=== PATIENT | male | born 1980 | race American Indian/Alaskan Native ===

== ENCOUNTER 2021-11-12 11:09 | Emergency (ER) | payer SELFPAY ==
[2021-11-12 11:35] VITALS: BP 152/90
[2021-11-12] MEDS ORDERED: METOCLOPRAMIDE 10 MG/2 ML INJ IV ONE (11:38)
[2021-11-12] MEDS ORDERED: diphenhydrAMINE 50 MG/ML VIAL IV ONE (11:38)
[2021-11-12] MEDS ORDERED: SODIUM CHLORIDE 0.9% 1000 ML 1,000 ML IV ONE (11:38)
--- NOTE | 2021-11-12 12:31 | Emergency Department Report ---
ED Headache HPI - General Chief Complaint: Headache Stated Complaint: MIGRAINE Time Seen by Provider: 11/12/21 11:38 Source: patient, RN notes reviewed Exam Limitations: no limitations - History of Present Illness Initial Comments: This is a 41-year-old male nontoxic, well nourished in appearance, no acute signs of distress presents to the ED with c/o of acute on chronic headache x several years. Patient stated had normal CT scan previously. Patient describes headache as diffuse with level of 3 out of 10. Patient denies thunderclap headache. Patient denies any radiation of pain. Patient denies any head trauma. Patient denies any visual changes. Patient denies worse headache. Patient stated that darkness makes headache better and bright lights make the headache worse. Patient denies any numbness, tingling, fever, chills, nausea, vomiting, chest pain, shortness of breath, stiff neck. Patient denies facial drooping or one sided weakness. Patient denies any radiation of pain. Patient stated allergies to penicillin. Past medical history includes migraine headaches. Timing/Duration: episodic Quality: achy Head Injury Location: other (diffuse) Recent Head Trauma: occasional headaches Associated Symptoms: denies symptoms. denies: confusion, fatigue, facial pain, fever/chills, flushing, loss of consciousness, nausea/vomiting, nasal congestion, nasal drainage, numbness in legs/feet, rash, seizures, sinus infection, stiff neck, vision changes, weakness Allergies/Adverse Reactions: Allergies Penicillins Allergy (Verified 01/11/14 12:33) Swelling Home Medications: Ambulatory Orders Fluticasone Propionate [Flonase] 16 gm NS BID #1 spray.susp 01/11/14 Sulfamethoxazole/Trimethoprim [Bactrim Ds] 1 each PO BID #20 tablet 01/11/14 predniSONE mg PO QDAY 01/11/14 HYDROcodone/APAP 5-325 [Mcalpin 5-325 mg TAB] 1 each PO Q6HR PRN #20 tablet 11/08/14 Naproxen [Naprosyn TAB] 500 mg PO BID #20 tablet 11/08/14 predniSONE [Deltasone] 50 mg PO QDAY #5 tab 11/08/14 Cetirizine HCl [Allergy Relief] 10 mg PO DAILY #10 tablet 04/14/15 Clindamycin [Cleocin] 300 mg PO Q8H #21 cap 04/14/15 Fluticasone [Flonase] 1 spray NS QDAY #1 bottle 04/14/15 Ibuprofen [Motrin 600 MG tab] 600 mg PO Q8H PRN #30 tablet 04/14/15 traMADoL [Ultram 50 MG tab] 50 mg PO Q6HR PRN #14 tablet 04/14/15 Butalb/Acetamin/Caff 50-325-40 [Fioricet 50-325-40] 1 tab PO Q8HR PRN #12 tablet 11/12/21 ED Review of Systems ROS: Stated complaint: MIGRAINE Other details as noted in HPI Comment: All other systems reviewed and negative Constitutional: denies: chills, fever Eyes: denies: eye pain, eye discharge, vision change ENT: denies: ear pain, throat pain Respiratory: denies: cough, shortness of breath, wheezing Cardiovascular: denies: chest pain, palpitations Endocrine: no symptoms reported Gastrointestinal: denies: abdominal pain, nausea, diarrhea Genitourinary: denies: urgency, dysuria Musculoskeletal: denies: back pain, joint swelling, arthralgia Skin: denies: rash, lesions Neurological: headache. denies: weakness, numbness, paresthesias, confusion, abnormal gait, vertigo Psychiatric: denies: anxiety, depression Hematological/Lymphatic: denies: easy bleeding, easy bruising ED Past Medical Hx - Past Medical History Previous Medical History?: Yes Hx Headaches / Migraines: Yes Additional medical history: sarcoidosis, Migraine headache, "Left lung with benignlymph node" - Surgical History Past Surgical History?: Yes Additional Surgical History: biopsy x 2, Left lung biopsy - Social History Smoking Status: Current Every Day Smoker Substance Use Type: Marijuana - Medications Home Medications: Home Medications Medication Instructions Recorded Confirmed Last Taken Type Fluticasone Propionate [Flonase] 16 gm NS BID #1 spray.susp 01/11/14 Unknown Rx Sulfamethoxazole/Trimethoprim 1 each PO BID #20 tablet 01/11/14 Unknown Rx [Bactrim Ds] predniSONE mg PO QDAY 01/11/14 01/11/14 Unknown History HYDROcodone/APAP 5-325 [Mcalpin 1 each PO Q6HR PRN #20 tablet 11/08/14 Unknown Rx 5-325 mg TAB] Naproxen [Naprosyn TAB] 500 mg PO BID #20 tablet 11/08/14 Unknown Rx predniSONE [Deltasone] 50 mg PO QDAY #5 tab 11/08/14 Unknown Rx Cetirizine HCl [Allergy Relief] 10 mg PO DAILY #10 tablet 04/14/15 Unknown Rx Clindamycin [Cleocin] 300 mg PO Q8H #21 cap 04/14/15 Unknown Rx Fluticasone [Flonase] 1 spray NS QDAY #1 bottle 04/14/15 Unknown Rx Ibuprofen [Motrin 600 MG tab] 600 mg PO Q8H PRN #30 tablet 04/14/15 Unknown Rx traMADoL [Ultram 50 MG tab] 50 mg PO Q6HR PRN #14 tablet 04/14/15 Unknown Rx Butalb/Acetamin/Caff 50-325-40 1 tab PO Q8HR PRN #12 tablet 11/12/21 Unknown Rx [Fioricet 50-325-40] ED Physical Exam - General Limitations: No Limitations General appearance: alert, in no apparent distress - Head Head exam: Present: atraumatic, normocephalic - Eye Eye exam: Present: normal appearance, PERRL, EOMI - ENT ENT exam: Present: normal exam - Neck Neck exam: Present: normal inspection, full ROM. Absent: tenderness, meningismus, lymphadenopathy - Respiratory Respiratory exam: Present: normal lung sounds bilaterally. Absent: respiratory distress, wheezes, rales, rhonchi, stridor, chest wall tenderness, accessory muscle use, decreased breath sounds, prolonged expiratory - Cardiovascular Cardiovascular Exam: Present: regular rate, normal rhythm, normal heart sounds. Absent: bradycardia, tachycardia, irregular rhythm, systolic murmur, diastolic murmur, rubs, gallop - GI/Abdominal GI/Abdominal exam: Present: soft. Absent: distended, tenderness - Extremities Exam Extremities exam: Present: full ROM - Back Exam Back exam: Present: normal inspection, full ROM - Neurological Exam Neurological exam: Present: alert, oriented X3, normal gait - Expanded Neurological Exam Expanded Patient oriented to: Present: person, place, time Cranial nerves: EOM's Intact: Normal, Facial Sensation: Normal Cerebellar function: Finger to Nose: Normal Upper motor neuron: Pronator Drift: Normal, Sensory Extinction: Normal Motor strength exam: RUE: 5, LUE: 5, RLE: 5, LLE: 5 Best Eye Response (Jay): (4) open spontaneously Best Motor Response ([place]): (6) obeys commands Best Verbal Response (Jay): (5) oriented [place] Total: 15 - Psychiatric Psychiatric exam: Present: normal affect, normal mood - Skin Skin exam: Present: warm, dry, intact, normal color. Absent: rash ED Course Vital Signs 11/12/21 11:33 Temperature 98.5 F Pulse Rate 95 H Respiratory 20 Rate Blood Pressure 152/90 O2 Sat by Pulse 100 Oximetry - Reevaluation(s) Reevaluation #1: 11/12/21 12:32 Patient is speaking in full sentences with no signs of distress noted. ED Medical Decision Making - Medical Decision Making This is a 41-year-old male that presents with headache. Patient is stable and was examined by me. Patient is neurologically stable. There is no stiff neck or neck pain. Vital signs are stable. Patient is afebrile. Patient received Benadryl, Reglan, and 1 L of normal saline which the patient stated that headache has subsided and resolved. Patient was instructed not to operate any machinery after discharged due to drowsiness of Benadryl. Patient stated that a family member will drive patient home. Patient is discharged with Fioricet. Patient was referred to Follow-up with a primary care/neurologist doctor in 3-5 days or if symptoms worsen and continue return to emergency room as soon as possible. At time of discharge, the patient does not seem toxic or ill in appearance. No acute signs of distress noted. Patient agrees to discharge treatment plan of care. No further questions noted by the patient. Critical care attestation.: If time is entered above; I have spent that time in minutes in the direct care of this critically ill patient, excluding procedure time. ED Disposition Clinical Impression: Headache Qualifiers: Headache type: unspecified Headache chronicity pattern: episodic headache Intractability: not intractable Qualified Code(s): R51.9 - Headache, unspecified Disposition: 01 HOME / SELF CARE / HOMELESS Is pt being admited?: No Does the pt Need Aspirin: No Condition: Stable Instructions: Migraine Headache Additional Instructions: Follow-up with a primary care doctor in 3-5 days or if symptoms worsen and continue return to emergency room as soon as possible. Prescriptions: Butalb/Acetamin/Caff 50-325-40 [Fioricet 50-325-40] 1 tab PO Q8HR PRN #12 tablet PRN Reason: Headache Referrals: PRIMARY CAREMD [Primary Care Provider] - 3-5 Days CHRISTINA CARMICHAEL MD [Staff Physician] - 3-5 Days Forms: Work/School Release Form(ED) Time of Disposition: 13:20
== END 2021-11-12 14:03 | disposition home or self-care (01) ==
LOC: ED 11:09
DX: R51.9 Headache, unspecified (principal); F17.200 Nicotine dependence, unspecified, uncomplicated; F12.90 Cannabis use, unspecified, uncomplicated
CPT/HCPCS: 96361; 96374; 96375; 99282; J1200; J2765